=== PATIENT | male | born 1995 | race Caucasian/White ===

== ENCOUNTER 2017-10-26 22:03 | Emergency (ER) | payer OTHER ==
[~2017-10-26] VITALS: Ht 180.3 cm; Wt 74.0 kg
[2017-10-26 22:11] VITALS: TEMP 36.8; Ht 180.3 cm; Wt 74.0 kg
--- NOTE | 2017-10-26 23:40 | EMERGENCY ROOM VISIT NOTE ---
ED Visit Note First contact with patient: 23:26 CHIEF COMPLAINT: Sore throat / HISTORY OF PRESENT ILLNESS: This 21-year-old male presents to ER with chief complaint of a sore throat for 1 week. The patient denies any fever, ear pain or head congestion. He does admit to coughing the past 2-3 days. He does admit to some postnasal drainage. He states he is coughing intermittently but does not cough anything up. Patient has been taking DayQuil with little relief. REVIEW OF SYSTEMS: 6 system review was performed and was negative unless stated otherwise in history of present illness. PMH: The patient is healthy; there is no significant medical or surgical history. SOCIAL HISTORY: Patient lives his father. The patient denies any tobacco or alcohol use. PHYSICAL EXAM: Vital Signs were reviewed: Reviewed Nurse's notes and agree.. GENERAL: 21-year-old male appears in no acute distress. MENTAL STATUS: Alert, oriented, coherent. EARS: Canals clear. TMs good light reflex, no erythema or fluid level noted. NOSE: Nasal mucosa with moderate erythema engorgement. PHARYNX: Moderate erythema, no edema noted. No exudate noted. Airway is adequate. NECK: Supple, non-tender. No lymphadenopathy noted. LUNGS: Clear to auscultation without wheezes rales or rhonchi. CARDIAC: Regular rate and rhythm without murmur. SKIN: No rashes noted. EMERGENCY COURSE: Patient was evaluated. Rapid strep was negative. Culture is pending. The patient was informed of the findings discharged to home in stable condition. DIAGNOSIS: Acute pharyngitis, probably viral URI DISCHARGE INSTRUCTIONS & TREATMENT: Read the pharyngitis (sore throat) instruction sheet. . Ibuprofen for pain and fever every 6 hours. Recommend over -the-counter steroid nasal spray such as Nasacort or Flonase as directed on the label for at least 5 days. May use Robitussin as needed for cough. If symptoms are not improving in 4-5 days, follow-up with your family doctor. Current/Historical Medications No Active Prescriptions or Reported Meds Allergies Coded Allergies: BEE STING (Verified Allergy, Intermediate, swelling, 10/26/17) Vital Signs Date Time Temp Pulse Resp B/P (MAP) Pulse Ox O2 Delivery O2 Flow Rate FiO2 10/26/17 22:11 36.8 60 18 125/77 98 Room Air Departure Information Prescriptions No Active Prescriptions or Reported Meds Referrals No Doctor, Assigned (PCP) Patient Instructions [facility]
[2017-10-26 23:53] VITALS: BP 109/67; PULSE 80; O2SAT 98
== END 2017-10-26 23:54 | disposition home or self-care (01) ==
LOC: C.EDB 22:04 → C.EDC 23:54
DX: J02.9 Acute pharyngitis, unspecified (principal); R05 Cough; R09.82 Postnasal drip; Z91.030 Bee allergy status